=== PATIENT | female | born 1985 | race Caucasian/White ===

== ENCOUNTER 2016-12-01 07:45 | Inpatient (IN) | payer OTHER ==
--- NOTE | 2016-11-19 19:19 | GHP ---
[f rep st] PREOP HISTORY AND PHYSICAL DATE OF ADMISSION: 12/01/2016 Surgery to be performed on December 01, 2016, at 9:30 a.m. SURGERY TO BE PERFORMED: Repeat lower transverse section at 39 and 2/7 weeks' gestation. PREOP DIAGNOSIS: History of section, desires repeat. HISTORY OF PRESENT ILLNESS: The patient is a 31-year-old 2, para 1-0-0-1, with a last menst rual period of 03/01/2016, and an EDC of 12/06/2016. She has had care at [facility] since transfer of care at 26 weeks. She was originally getting care at [facility] but had a change in insurance. Her risk factor is only significant for history of C-s ection with G1 secondary to failure to progress past 2 cm and desires repeat this pregnanc y. She has had normal labs in this , normal ultrasounds in this , and has progres sed to 37 weeks without complaint. The patient is feeling well, has good movement. No contra ctions, and no specific complaints. REVIEW OF SYSTEMS: Negative. PAST OBSTETRICAL HISTORY: Just as above. In May of 2012, she had a primary for a via ble male, 7 pounds, 7 ounces. She had spontaneous rupture of membranes and augmentation of labor bu t failure to progress past 2 cm, was given a diagnosis of cephalopelvic disproportion, and this is h er 2nd . GYNECOLOGICAL HISTORY: She has a normal menstrual triad, sure and regular last menstrual period. D enies any abnormal Pap smears or STDs. Has used both oral contraceptive pills and condoms for control. PAST MEDICAL/SURGICAL HISTORY: She has no significant past medical history. She does have a histor y of a past trauma. At 6 years old she was attacked by a dog and had severe lacerations, over [address] st itches, that got infected and was hospitalized for that, but no chronic medical problems and only davies rgical history is the . ALLERGIES: She is allergic to shellfish but no known drug allergies. MEDICATIONS: Include vitamins and iron and DHA. LABS: She is A-positive, antibody negative, RPR nonreactive, rubella immune, hepatitis negative, HI V negative. Pap normal. Gonorrhea and chlamydia normal. 1-hour GTT 151. 3-hour GTT was normal. G BS was negative. SOCIAL HISTORY: She is . She lives with her and her son. She is a kindergarten tea anel. She denies tobacco, alcohol, and drug use. FAMILY HISTORY: Her father of heart failure in his 40s. Both grandmothers had chronic hyperte nsion. Mother has asthma. Paternal grandfather had diabetes. She has a family history of nephriti s on her father's side; an aunt and uncle young of Alport's syndrome. Maternal grandmother had a stroke, and her sister has Crohn disease. OBJECTIVE: VITAL SIGNS: Today, she is afebrile. Blood pressure is 110/64. Weight is 185. That i s a 35-pound weight gain this . GENERAL: She is a well-developed, well-nourished gravid f emale, in no acute distress. LUNGS: Clear to auscultation bilaterally. HEART: Regular rate and r hythm. No murmur. ABDOMEN: Gravid, nontender. Fundal height is 37. heart tones are 140s. CERVICAL: Deferred. ASSESSMENT AND PLAN: 31-year-old 2, para 1-0-0-1, who will be 39 and 2/7 weeks' gestation o n December 01, desires her repeat section on that day because that is the anniversary of her f ather's birthday. She was consented for the procedure today. She understood the risks and benefits . The risks including bleeding, infection, damage to internal organs, uterus, tubes, ovaries, bowel , bladder, nerves, blood vessels, ureters, risk of injury, risk of hemorrhage requiring blood transfusion, hysterectomy, or . She understood these risks and benefits and agreed to proceed. /[id number]/MODL
[2016-12-01] MEDS ORDERED: LR 500 ML IV ONE (08:16)
[2016-12-01] MEDS ORDERED: CITRIC ACID/SODIUM CITRATE 30 ML UDCUP PO ONE (08:16)
[2016-12-01] MEDS ORDERED: LR 1,000 ML IV SCH (08:30)
[2016-12-01 08:36] LABS: % IMMATURE GRANULYOCYTES 1.1 % (0.0-1.1); ADD DIFF? NO; ADD MORPH? NO; ADD SCAN? NO; ATYPICAL LYMPHOCYTE FLAG 0 (0-99); FRAGMENT RBC FLAG 10 (0-99); HEMATOCRIT 33.4 % (38.0-47.0); HEMOGLOBIN 11.3 g/dL (12.6-16.3); LEFT SHIFT FLG 0 (0-99); LIPEMIA HEMOLYSIS FLAG 90 (0-99); MEAN CELL HEMOGLOBIN 27.7 pg (27.9-34.1); MEAN CELL HEMOGLOBIN CONCENTR. 33.8 g/dL (32.4-36.7); MEAN CELL VOLUME 81.9 fL (81.5-99.8); MEAN PLATELET VOLUME 9.6 fL (8.7-11.7); PLATELET CLUMPS FLAG 20 (0-99); PLATELET COUNT 273 10^3/uL (150-400); RED BLOOD CELL COUNT 4.08 10^6/uL (4.18-5.33); RED CELL DISTRIBUTION WIDTH 16.9 % (11.5-15.2)
[2016-12-01] MEDS ORDERED: AMMONIA AROMATIC 1 EACH AMP IH ONE (09:10)
[2016-12-01] MEDS ORDERED: LIDOCAINE 1% 300 MG/30 ML SDV ONE (09:10)
[2016-12-01] MEDS ORDERED: MISOPROSTOL 200 MCG TAB ONE (09:11)
[2016-12-01] MEDS ORDERED: OXYTOCIN 10 UNIT/ML VIAL ONE (09:11)
[2016-12-01] MEDS ORDERED: ceFAZolin 2 GM/DEXTROSE 100 ML IV ONE (09:30)
[2016-12-01] MEDS ORDERED: fentaNYL 100 MCG/2 ML INJ ONE (11:21)
[2016-12-01] MEDS ORDERED: PHENYLEPHRINE HCL 100 MCG/ML SYR ONE (11:37)
[2016-12-01] MEDS ORDERED: epHEDrine SULFATE 10 MG/ML SYR ONE (11:37)
[2016-12-01] MEDS ORDERED: ONDANSETRON 4 MG/2 ML VIAL ONE (11:37)
--- NOTE | 2016-12-01 11:49 | PREANESOB ---
Obstetric Pre-Anesthesia Info - General Info Proposed Procedure: repeat cs : 2 Para: 1 - Info Status: Full Term Monitors: External FHR Pattern: Reassuring - Labor Status Section History: Primary, Repeat Indications for Current Section: Elective/Repeat Anesthesia Allergies/Adverse Reactions: Allergy/AdvReac Type Severity Reaction Status Date / Time shellfish derived Allergy Verified 12/01/16 08:16 Home Medications: Medication Instructions Recorded Docosahexanoic Acid [Dha] 1 cap PO DAILY 12/01/16 Docusate Sodium [Colace 100 MG (*)] 1 cap PO DAILY 12/01/16 IRON,CARBONYL [IRON] 1 tab PO DAILY 12/01/16 Vit27&Calcium/Iron/FA 1 tab PO DAILY 12/01/16 [] Visit Medications: Generic Name Dose Route Start Last Admin Trade Name Freq PRN Reason Stop Dose Admin Lactated Ringer's 1,000 mls @ 125 mls/hr 12/01/16 08:30 12/01/16 08:30 Lr IV 05/30/17 08:29 1,000 mls CONT MONI Administration Discontinued Medications Generic Name Dose Route Start Last Admin Trade Name Freq PRN Reason Stop Dose Admin Ammonia (Aromatic Spirit) Confirm 12/01/16 09:10 Ammonia Aromatic Administered 12/01/16 09:11 Dose 1 each IH .STK-MED ONE Citric Acid/Sodium Citrate 30 ml 12/01/16 08:16 12/01/16 10:47 Bicitra PO 12/01/16 08:17 30 ml ONCALL ONE Administration Ephedrine Sulfate Confirm 12/01/16 11:37 Ephedrine Sulfate Administered 12/01/16 11:38 Dose 10 mg .ROUTE .STK-MED ONE Fentanyl Confirm 12/01/16 11:21 Sublimaze Administered 12/01/16 11:22 Dose 100 mcg .ROUTE .STK-MED ONE Lactated Ringer's 500 mls @ 0 mls/hr 12/01/16 08:16 Lr IV 12/01/16 08:17 ONCE ONE As Directed Cefazolin Sodium/Dextrose 100 mls @ 200 mls/hr 12/01/16 09:30 12/01/16 10:47 Ancef 2 Gm (Premix) IV 12/01/16 09:59 100 mls ONCE ONE Administration Lidocaine HCl Confirm 12/01/16 09:10 Lidocaine Hcl 1% Administered 12/01/16 09:11 Dose 300 mg .ROUTE .STK-MED ONE Misoprostol Confirm 12/01/16 09:11 Cytotec Administered 12/01/16 09:12 Dose 1,000 mcg .ROUTE .STK-MED ONE Ondansetron HCl Confirm 12/01/16 11:37 Zofran Administered 12/01/16 11:38 Dose 4 mg .ROUTE .STK-MED ONE Oxytocin Confirm 12/01/16 09:11 Pitocin Administered 12/01/16 09:12 Dose 40 unit .ROUTE .STK-MED ONE Phenylephrine HCl Confirm 12/01/16 11:37 Neosynephrine Administered 12/01/16 11:38 Dose 1,000 mcg .ROUTE .STK-MED ONE - Focused Exam Height/Weight (Nursing): Height 157.48 cm Weight 83.915 kg Labs: 12/01/16 08:00 Patient ABO/Rh A POSITIVE 12/01/16 08:00
[2016-12-01] MEDS ORDERED: PHENYLEPHRINE 10 MG/ML SDV ONE (12:10)
[2016-12-01] MEDS ORDERED: ACETAMINOPHEN 325 MG TAB PO PRN (12:39)
[2016-12-01] MEDS ORDERED: SIMETHICONE 80 MG TAB CHEW PO PRN (12:39)
[2016-12-01] MEDS ORDERED: PROMETHAZINE HCL 25 MG/ML INJ IVP PRN (12:39)
--- NOTE | 2016-12-01 12:43 | POSTANESTH ---
Post Anesthetic Evaluation Cardiovascular Status: Normal, Stable Respiratory Status: Normal, Stable Level of Consciousness/Mental Status: Can Participate in Eval Pain Control: Adequate, Prn Tx Ordered Nausea/Vomiting Control: Adequate, Prn Tx Ordered Complications Possibly Related to Anesthesia: None Noted
--- NOTE | 2016-12-01 12:44 | OBDEL ---
Info Type: Repeat GBS+: No Indications for Delivery: Elective Operative Report - Delivery Pre-op Diagnoses: IUP @ 39 4/7 weeks h/o c section desires repeat Post-op Diagnoses: same Nulliparous Prior to Delivery: No Presentation at Delivery: Vertex Procedure: Scheduled, Low Transverse Surgeon: Rafaela Bocanegra Carding Supervisor: Lisa Quesada Anesthesiologist: Benitez Welch Canopy Inspector/WEATHER FORECASTER: Nataliia Irving L&Cate Analgesia/Anesthesia Type: Spinal Complications: None Findings: normal uterus, tubes and ovaries IV Fluid (ml): 2,200 EBL: 800 [place] Data Jimenez Delivery Date: 12/01/16 Delivery Time: 11:51 KAREY: 12/06/16 Gestational Age: 39 week(s) and 2 day(s) Sex of Infant: Female [place] Weight (gm): 3362 g Score (1 Min): 8 Score (5 Min): 9 ICD10 Worksheet Patient Problems: Problems Problem Status Onset Delivered by section Acute - ICD10 Problem Qualifiers (1) Delivered by section
--- NOTE | 2016-12-01 12:47 | OBGCSDC ---
General Delivery Information - General Info : 2 Para: 1 Abortions: 0 Delivery Physician/CNM: Rafaela Bocanegra Freelance Interpreter/Translator: Lisa Quesada Labs: Patient ABO/Rh A POSITIVE 12/01/16 08:00 Hct 33.4 % (38.0-47.0) L 12/01/16 08:00 Vaginal - Diagnosis Presentation at Delivery: Vertex - Operations/Procedures L&D Analgesia/Anesthesia Type: Spinal - Delivery Number of Prior Sections: 1 Indications for Prior Section: Arrest of Dilation Indications for Current Section: Elective/Repeat Type: Repeat Surgical Procedures: Scheduled, Low Transverse Intra-op Complications: None EBL: 800 L&D Analgesia/Anesthesia Type: Spinal - Hospital Course Antepartum: Pt was a transfer of care from [facility] @ 26 weeks. H/0 c section secondary to arrest of dilation desires repeat. Intrapartum: Scheduled repeat c section without complications : good pain control, now on po meds, breast feeding well and milk is coming in, iron BID for anemia Data [place] Delivery Date: 12/01/16 Delivery Time: 11:51 KAREY: 12/06/16 Gestational Age: 39 week(s) and 5 day(s) Sex of Infant: Female [place] Weight (gm): 3362 g Score (1 Min): 8 Score (5 Min): 9 Discharge Information - Discharge Information Discharge Medications: Hydrocodone, Ibuprofen Condition: Good Instruction/Follow Up: Two Weeks, Four Weeks, Six Weeks Discharge Physician/CNM: Rafaela Bocanegra
--- NOTE | 2016-12-01 13:27 | GOP ---
[f rep st] OPERATIVE REPORT DATE OF OPERATION: 12/01/2016 SURGEON: Rafaela Bocanegra MD ARTIFICIAL INSEMINATION TECHNICIAN: Deanne Quesada, certified nurse medical practice assistant. ANESTHESIA: Spinal anesthesia. ANESTHESIOLOGIST: Benitez Welch MD. PREOPERATIVE DIAGNOSIS: Intrauterine at 39 and 4/7 weeks gestation with a history of prio r lower transverse section, desires repeat. POSTOPERATIVE DIAGNOSIS: Intrauterine at 39 and 4/7 weeks gestation with a history of yaw or lower transverse section, desires repeat. PROCEDURE PERFORMED: Repeat lower transverse section. FINDINGS: Viable female. Apgars of 8 and 9. Weight of 3362 g. ESTIMATED BLOOD LOSS: For the procedure was 1000 cc. INDICATIONS: The patient is a 31-year-old, 2, para 1-0-0-1, with a last menstrual period of 03/01/2016 and an EDC of 12/06/2016. She had good care at [facility] since han sf at 26 weeks from [facility]. She had a history of with G1 secondary to arre st of dilation and desired repeat. Declines attempted trial of labor. The patient was consented fo r the procedure. She understood the risks and benefits. The risks, including bleeding, infection, damage to internal organs, uterus, tubes, ovaries, bowel, bladder, nerves, blood vessels, ureters, r isk of injury, risk of hemorrhage requiring blood transfusion, hysterectomy, or . She un derstood these risks and benefits, agreed to proceed. DESCRIPTION OF PROCEDURE: Patient was taken to the operating room where she was given spinal anesth esia without difficulty. She was prepped and draped in dorsal supine position with a leftward tilt, and a Bonilla catheter was placed in her bladder. After adequate anesthesia was assured, a transvers e skin incision was made in her prior scar. The incision was then carried down to the und erlying layer of fascia. Fascia was incised in the midline. Fascial incision was extended laterall y with Shaw scissors. Superior aspect of the fascial incision was grasped with Hugh clamps, eleva domitila, and the rectus muscles were dissected off sharply. Inferior aspect of the fascial incision was grasped with Hugh clamps, elevated, and the rectus muscles were dissected off sharply. Rectus mu scles were in the midline. Peritoneum was entered sharply. Peritoneal incision was exten ded superiorly and inferiorly with good visualization of bladder. Bladder blade was inserted. The vesicouterine peritoneum was grasped with the pickups, entered sharply with Metzenbaum scissors. Th e incision extended laterally and bladder flap was created digitally. Bladder blade was reinserted, and the uterus was incised with a knife. There was clear amniotic fluid upon entry into the uterin e cavity. The incision was extended laterally with bandage scissors. The infant was in vertex pres entation and was delivered atraumatically. The cord was clamped and cut. The was handed off to the awaiting nurse practitioner. Cord bloods were sent. The placenta was removed manu ally. The uterus was exteriorized, cleared of all clots and debris. The uterine incision was repai red with 0 Vicryl in a running locked fashion. Second imbricating layer of suture was performed wit h 0 Vicryl, and good hemostasis was obtained. The uterus was returned to the abdomen. Gutters were cleared of all clots and debris. Reinspection of the uterine incision again assured hemostasis. R ectus muscles were approximated with 2-0 Vicryl in inverted mattress fashion. Fascia was closed wit h #1 Vicryl in a running fashion. Subcutaneous layer was closed with 2-0 Vicryl, and the skin was c losed with 4-0 Vicryl. Patient tolerated the procedure well. Sponge, lap, needle, and instrument c ounts were correct x2. Patient went to the recovery room in good in good condition. FLUID REPLACEMENT: 2200 cc. URINE OUTPUT: 200 cc. /[id number]/MODL
[2016-12-01] MEDS: KETOROLAC 30 MG/1 ML SDV IVP PRN ×2 (14:36→20:27)
[2016-12-01] MEDS: HYDROCODONE/APAP 5/325 TAB PO PRN (16:46)
--- NOTE | 2016-12-01 18:23 | OBPP ---
Progress Note Assessment/Plan: Assessment: 31 y/o POD #0 s/p Rpt LTCS doing well Plan: Advance diet as tolerated and transition to po meds. support and routine POC. 12/01/16 18:22 Subjective: Pt is doing well this evening. She has good pain control with Toradol and started po [place]. She is tolerating small amounts of reg diet. Nursing is going well and baby is doing well. Objective: 12/01/16 08:00 Patient ABO/Rh A POSITIVE 12/01/16 08:00 Temp Pulse Resp BP Pulse Ox 36.9 C 90 18 111/75 95 12/01/16 16:35 12/01/16 16:35 12/01/16 16:35 12/01/16 16:35 12/01/16 16:35 Uterine Position/Fundal Height: Umbilicus -2 Uterine Tone: Firm Physical Exam - Physical Exam General Appearance: WD/WN, alert, no apparent distress Neck: non-tender, full range of motion, supple Respiratory: chest non-tender, lungs clear, normal breath sounds Cardiac/Chest: regular rate, rhythm Abdomen: normal bowel sounds, dressing (c/d/i) Extremities: swelling (no), Sam's sign (neg)
[2016-12-02] MEDS: HYDROCODONE/APAP 5/325 TAB PO PRN ×4 (01:45→18:40)
[2016-12-02] MEDS: KETOROLAC 30 MG/1 ML SDV IVP PRN ×2 (02:56→08:29)
[2016-12-02] MEDS: DOCUSATE SODIUM 100 MG CAP PO PRN ×2 (08:16→20:40)
[2016-12-02] MEDS: IBUPROFEN 600 MG TAB PO PRN ×2 (14:29→20:40)
--- NOTE | 2016-12-02 18:48 | OBPP ---
Progress Note Assessment/Plan: Assessment: pod# 1 s/p RLTCS anemia breast feeding Plan: routine post and post operative care iron 12/02/16 18:46 Subjective: patient is doing well. pain is well controlled. passing gas. voiding without difficulty. denies headache and changes in vision. normal lochia. breast feeding is going well. Objective: 12/02/16 06:10 Patient ABO/Rh A POSITIVE 12/01/16 08:00 Temp Pulse Resp BP Pulse Ox 36.9 C 91 17 109/77 96 12/02/16 17:00 12/02/16 17:00 12/02/16 17:00 12/02/16 17:00 12/02/16 17:00 Physical Exam - Physical Exam General Appearance: WD/WN, alert, no apparent distress Respiratory: chest non-tender, lungs clear, normal breath sounds Cardiac/Chest: normal peripheral pulses, regular rate, rhythm Abdomen: normal bowel sounds, hypoactive bowel sounds, non-tender, other ( fundus firm and non tender) Extremities: normal range of motion, non-tender, normal inspection, normal capillary refill Skin: normal color, warm/dry, other (incision covered) Neuro/Psych: no motor/sensory deficits, alert, normal mood/affect, oriented x 3
[2016-12-02] MEDS: IRON POLYSAC/IRON HEME 28 MG TAB PO SCH (20:40)
[2016-12-03] MEDS: IBUPROFEN 600 MG TAB PO PRN ×4 (02:36→22:18)
--- NOTE | 2016-12-03 07:47 | OBPP ---
Progress Note Assessment/Plan: Assessment: 1) s/p RCS POD # 2 - pt is stable 2) Anemia - pt is asymptomatic Plan: Continue routine pp care Encourage ambulation Cont iron/colace Plan for d/c home in am 12/0412/03/16 07:44 Subjective: Pt seen and examined. Doing well, with no complaints. Pain is well controlled. Pt is OOB, peg reg diet, voiding without difficulty and passing flatus. No BM. Moderate lochia. Denies any f/c/n/v/CP or SOB. BF without difficulty. Objective: 12/02/16 06:10 Patient ABO/Rh A POSITIVE 12/01/16 08:00 Temp Pulse Resp BP Pulse Ox 36.8 C 86 16 112/70 97 12/03/16 02:35 12/03/16 02:35 12/03/16 02:35 12/03/16 02:35 12/03/16 02:35 Uterine Position/Fundal Height: Umbilicus -2 Uterine Tone: Firm Physical Exam - Physical Exam General Appearance: WD/WN, alert, no apparent distress Respiratory: lungs clear, normal breath sounds Cardiac/Chest: regular rate, rhythm Abdomen: normal bowel sounds, non-tender, soft, flatus (+), incision (C/D/I with steri strips) Extremities: non-tender, normal inspection Skin: normal color, warm/dry Neuro/Psych: alert, normal mood/affect, oriented x 3
[2016-12-03] MEDS: HYDROCODONE/APAP 5/325 TAB PO PRN ×3 (07:53→16:15)
[2016-12-03] MEDS: DOCUSATE SODIUM 100 MG CAP PO PRN ×2 (07:53→22:18)
[2016-12-03] MEDS: IRON POLYSAC/IRON HEME 28 MG TAB PO SCH ×2 (07:53→22:18)
[2016-12-03 23:45] VITALS: RESP 18
[2016-12-04] MEDS: IBUPROFEN 600 MG TAB PO PRN ×2 (04:48→11:54)
[2016-12-04] MEDS: HYDROCODONE/APAP 5/325 TAB PO PRN ×3 (08:07→11:54)
[2016-12-04] MEDS: IRON POLYSAC/IRON HEME 28 MG TAB PO SCH (08:08)
[2016-12-04 09:05] VITALS: BP 121/88; PULSE 85; TEMP 98.2; O2SAT 98
--- NOTE | 2016-12-04 10:25 | OBPP ---
Progress Note Assessment/Plan: Assessment: 31 y/o POD #3 s/p Rpt LTCS doing well Plan: D/c home with [place] and Ibuprofen. Follow-up @ [facility] 2,4 and 6 weeks. 12/01/16 18:22 12/04/16 10:24 Subjective: Pt is doing well with good pain control on Ibuprofen, and [place]. Breast feeding well. Ready to d/c home. Objective: 12/02/16 06:10 Patient ABO/Rh A POSITIVE 12/01/16 08:00 Temp Pulse Resp BP Pulse Ox 36.8 C 85 18 121/88 H 98 12/04/16 08:10 12/04/16 08:10 12/04/16 08:10 12/04/16 08:10 12/04/16 08:10 Uterine Position/Fundal Height: Umbilicus -2 Uterine Tone: Firm Physical Exam - Physical Exam General Appearance: WD/WN, alert, no apparent distress Neck: non-tender, full range of motion, supple Respiratory: chest non-tender, lungs clear, normal breath sounds Cardiac/Chest: regular rate, rhythm Abdomen: normal bowel sounds Extremities: normal range of motion, swelling (no), Sam's sign (neg)
== END 2016-12-04 14:00 | disposition home or self-care (01) | DRG 766 ==
LOC: FLD 07:45 → FOB 14:17
PROVIDERS: ADMIT Obstetrics & Gynecology; ATTEND Obstetrics & Gynecology
PROC: 10D00Z1 Extraction of Products of Conception, Low, Open Approach (ICD-10-PCS; principal; 2016-12-01)
DX: O34.219 Maternal care for unspecified type scar from previous cesarean delivery (principal); Z37.0 Single live birth; Z3A.39 39 weeks gestation of pregnancy; O99.03 Anemia complicating the puerperium; D64.9 Anemia, unspecified
CPT/HCPCS: J0690; J1885; J2370; J2405; J2550; J3010